=== PATIENT | female | born 1995 | race Caucasian/White ===

== ENCOUNTER 2019-02-03 16:33 | Emergency (ER) | payer OTHER ==
[2019-02-03] MEDS: MECLIZINE 12.5 MG TAB PO (17:38)
[2019-02-03 17:40] LABS: URINE BLOOD (Dip) POC Negative (NEGATIVE); URINE GLUCOSE (Dip) POC Negative (NEGATIVE); URINE KETONES (Dip) POC Negative (NEGATIVE); URINE LEUKOCYTE EST (Dip) POC Negative (NEGATIVE); URINE NITRITE (Dip) POC Negative (NEGATIVE); URINE TOTAL PROTEIN POC Negative (NEGATIVE)
[2019-02-03 17:40] LABS: URINE PH (Dip) POC 6.5 (5.0-8.5)
== END 2019-02-03 19:53 | disposition home or self-care (01) ==
LOC: FTE 16:33
DX: H81.13 Benign paroxysmal vertigo, bilateral (principal)
CPT/HCPCS: 81003; 81025; 99283